=== PATIENT | female | born 1965 | race Caucasian/White ===

== ENCOUNTER → 2022-06-04 | Outpatient (CLI) | payer BC ==
[~2022-06-04] MED LIST: ATOR40TA75 PO; LISI20TA33 PO; METF10004 PO
== END ==
LOC: M LABSMTC 09:52
PROVIDERS: ATTEND Anesthesiology
DX: Z11.52 Encounter for screening for COVID-19 (principal)

== ENCOUNTER 2022-06-07 10:17 | Day surgery (SDC) | payer BC ==
[~2022-06-07] VITALS: Ht 170.2 cm; Wt 78.0 kg
[~2022-06-07 10:17] MED LIST changes: +LIDOCAINE 1% SDV 5ML VIAL As Ordered ONE; +LR 1,000 ML IV SCH; +MAXITROL OPHTH SUSP 5 ML As Ordered ONE; +OFLOXACIN 0.3 % (OCUFLOX) OPTH SOL 5ML OD SCH; +PHENYLEPHRINE 2.5% OPHTH SOL 2ML OD SCH; +PHENYLEPHRINE HCL 10 % OPHTH. SOL 5ML OD ONE; +PROPARACAINE 0.5% OPHTH SOL 15ML OD ONE; +TROPICAMIDE 1% OPHTH SOLN 2ML OD SCH
[2022-06-07] MEDS: TETRACAINE 0.5% OPHTH SOLN 4ML OD SCH ×2 (11:15→11:30)
[2022-06-07] MEDS: PHENYLEPHRINE 2.5% OPHTH SOL 2ML OD SCH ×3 (11:17→11:50)
[2022-06-07] MEDS: CYCLOPENTOLATE 1% OPHTH SOLN 2 ML BTL OD SCH ×3 (11:18→11:50)
[2022-06-07] MEDS: FLURBIPROFEN 0.03% OPHTH SOLN 2.5 ML OD SCH ×3 (11:18→11:50)
[2022-06-07] MEDS ORDERED: MIDAZOLAM INJ 2MG/2ML VIAL (J2250 PER 1MG) As Ordered ONE (12:53)
[2022-06-07 13:30] VITALS: BP 118/81
== END 2022-06-07 13:44 | disposition home or self-care (01) ==
LOC: M SDC 10:17
PROVIDERS: ATTEND Ophthalmology
DX: H25.11 Age-related nuclear cataract, right eye (principal); I10 Essential (primary) hypertension; E11.21 Type 2 diabetes mellitus with diabetic nephropathy; E11.3293 Type 2 diabetes mellitus with mild nonproliferative diabetic retinopathy without macular edema, bilateral; E78.00 Pure hypercholesterolemia, unspecified; F17.210 Nicotine dependence, cigarettes, uncomplicated; Z79.899 Other long term (current) drug therapy; Z79.84 Long term (current) use of oral hypoglycemic drugs
CPT/HCPCS: 66984; J2250

== ENCOUNTER → 2025-08-09 | Outpatient (CLI) | payer BC ==
[~2025-08-09] MED LIST changes: -LIDOCAINE 1% SDV 5ML VIAL As Ordered ONE; -LR 1,000 ML IV SCH; -MAXITROL OPHTH SUSP 5 ML As Ordered ONE; -OFLOXACIN 0.3 % (OCUFLOX) OPTH SOL 5ML OD SCH; -PHENYLEPHRINE 2.5% OPHTH SOL 2ML OD SCH; -PHENYLEPHRINE HCL 10 % OPHTH. SOL 5ML OD ONE; -PROPARACAINE 0.5% OPHTH SOL 15ML OD ONE; -TROPICAMIDE 1% OPHTH SOLN 2ML OD SCH
== END ==
LOC: M RAD 09:34
PROVIDERS: ATTEND Otolaryngology
DX: E04.2 Nontoxic multinodular goiter (principal)

== ENCOUNTER → 2025-10-04 | Outpatient (CLI) | payer BC ==
[2025-10-04 12:18] VITALS: BP 118/61; TEMP 97.2; O2SAT 97
[2025-10-04] MEDS: LIDOCAINE 1% MDV 20 ML VIAL SC STA (13:50)
== END ==
LOC: M IRPRO 11:54
PROVIDERS: ATTEND Otolaryngology
DX: E04.2 Nontoxic multinodular goiter (principal)